=== PATIENT | male | born 1955 | race Caucasian/White ===

== ENCOUNTER → 2018-02-06 | Outpatient (CLI) | payer BC ==
[~2018-02-06] MED LIST: ASPIR 8181 M1 PO; ATORVASTATIN CA20 MG PO; AUGMENTIN875 MG PO; CENTRUM MEN'S1 EACH PO
== END | disposition home or self-care (01) ==
LOC: CDC 14:51
DX: Z01.810 Encounter for preprocedural cardiovascular examination (principal); G56.01 Carpal tunnel syndrome, right upper limb; I10 Essential (primary) hypertension; E78.00 Pure hypercholesterolemia, unspecified; R94.31 Abnormal electrocardiogram [ECG] [EKG]
CPT/HCPCS: 93000